=== PATIENT | female | born 1980 | race Caucasian/White ===

== ENCOUNTER 2022-10-14 09:25 | Emergency (ER) | payer MEDICAID ==
[~2022-10-14] VITALS: Ht 154.9 cm; Wt 82.6 kg
[2022-10-14 09:35] VITALS: BP 131/79
--- NOTE | 2022-10-14 09:37 | NUR ---
BIBself for rash x 3 days. Denied any intake of new meds, new food or change of detergent. BP 113/73mmHg, HR 89/min. SPO2 100% RA. Noted generalized rash and they are itchy.
[2022-10-14] MEDS ORDERED: DIPH50CA4 PO (09:41)
[2022-10-14] MEDS ORDERED: PRED50TA PO (09:41)
[2022-10-14] MEDS ORDERED: diphenhydrAMINE HCL 50 MG CAPSULE ONE (09:43)
[2022-10-14] MEDS ORDERED: predniSONE 20 MG TABLET ONE (09:45)
--- NOTE | 2022-10-14 09:56 | NUR ---
Medications are adminstered to patient and reminded her not to drive for long hours after taking benadryl. She showed understanding. Patient's chief complaint has been catered to and for discharge. Patient left at 09:55 by herself.
[2022-10-14] MEDS ORDERED: predniSONE 50 MG TABLET PO ONE (10:00)
[2022-10-14] MEDS ORDERED: diphenhydrAMINE HCL 25 MG CAPSULE PO ONE (10:00)
== END 2022-10-14 09:55 | disposition home or self-care (01) ==
LOC: ER 09:29
DX: L30.9 Dermatitis, unspecified (principal); K74.60 Unspecified cirrhosis of liver; E11.9 Type 2 diabetes mellitus without complications; Z79.899 Other long term (current) drug therapy; Z88.0 Allergy status to penicillin
CPT/HCPCS: 99283; Q0163; J7512

== ENCOUNTER 2023-08-02 20:05 | Emergency (ER) | payer MEDICAID ==
[~2023-08-02] VITALS: Ht 154.9 cm; Wt 84.4 kg
[~2023-08-02 20:05] MED LIST: DIPH50CA4 PO; PRED50TA PO
[2023-08-02] MEDS ORDERED: FAMOTIDINE/PF INJ 20 MG/2 ML VIAL IV ONE ×2 (22:23→22:30)
[2023-08-02] MEDS ORDERED: ONDANSETRON HCL/PF 4 MG/2 ML VIAL ONE (22:23)
[2023-08-02] MEDS ORDERED: KETOROLAC TROMETHAMINE 15 MG/ML VIAL ONE (22:29)
[2023-08-02] MEDS ORDERED: IV NS 0.9% 1,000 ML BAG IV ONE (22:30)
[2023-08-02] MEDS ORDERED: KETOROLAC TROMETHAMINE 15 MG/ML VIAL IV ONE (22:30)
[2023-08-02] MEDS ORDERED: ONDANSETRON HCL/PF 4 MG/2 ML VIAL IVP ONE (22:30)
[2023-08-02 22:50] LABS: BASOPHILS % (AUTO) 0.3 % (0.0-2.0); EOSINOPHILS # (AUTO) 0.2 K/uL (0.0-0.7); EOSINOPHILS % (AUTO) 2.8 % (0.0-6.0); HEMATOCRIT 35 % (33-45); HEMOGLOBIN 11.3 g/dL (11.5-14.8); LYMPHOCYTES # (AUTO) 1.7 K/uL (0.8-4.8); LYMPHOCYTES % (AUTO) 30.2 % (20.0-44.0); MEAN CORPUSCULAR HEMOGLOBIN 26 PG (26.0-33.0); MEAN CORPUSCULAR HGB CONC 32 g/dl (31.0-36.0); MEAN CORPUSCULAR VOLUME 80 fL (82-100); MONOCYTES # (AUTO) 0.4 K/uL (0.1-1.30); MONOCYTES % (AUTO) 6.4 % (2.0-12.0); NEUTROPHILS # (AUTO) 3.4 K/uL (1.8-8.9); NEUTROPHILS % (AUTO) 60.3 % (43.0-81.0); PLATELET COUNT (AUTO) 143 K/uL (150-450); RED BLOOD CELL COUNT(AUTO) 4.35 MIL/uL (4.0-5.2); RED CELL DISTRIBUTION WIDTH 14.6 % (11.5-15.0); WHITE BLOOD COUNT (AUTO) 5.6 K/uL (4.3-11.0)
[2023-08-02 22:58] LABS: CALCIUM, SERUM 8.9 mg/dL (8.5-10.1); CREATININE 0.7 mg/dL (0.6-1.3); POTASSIUM 3.5 mmol/L (3.5-5.1)
[2023-08-02 23:00] LABS: PARTIAL THROMBOPLASTIN TIME 28.1 SEC (24.3-34.3); PROTHROMBIN TIME 10.6 SECS (9.2-11.1)
[2023-08-02 23:03] LABS: ALBUMIN 3.4 g/dL (3.4-5.0); BILIRUBIN,DIRECT 0.1 mg/dL (0.0-0.2); BILIRUBIN,TOTAL 0.4 mg/dL (0.2-1.0); TOTAL PROTEIN, SERUM 8.4 g/dL (6.4-8.2)
[2023-08-02 23:13] LABS: APPEARANCE,URINE CLEAR (CLEAR); BILIRUBIN,URINE NEGATIVE (NEGATIVE); BLOOD, URINE 3+ Ery/uL (NEGATIVE); COLOR,URINE YELLOW (YELLOW); KETONES,URINE TRACE mg/dL (NEGATIVE); LEUKOCYTE ESTERASE ,URINE NEGATIVE (NEGATIVE); NITRITE, URINE NEGATIVE (NEGATIVE); PROTEIN,URINE NEGATIVE (NEGATIVE); UGLUCOSE 2+ mg/dL (NEGATIVE); UROBILINOGEN,URINE >=8.0 EU/dL (0.2)
[2023-08-02 23:16] LABS: ADD URINE CULTURE NO; BACTERIA,URINE None seen /HPF (None Seen); RBC,URINE 51-80 /HPF (0-2); SQUAMOUS EPITHELIAL CELL,UR Few /HPF (None Seen)
[2023-08-03] MEDS ORDERED: IOHEXOL-300 100 ML VIAL IV ONE (00:11)
[2023-08-03] MEDS ORDERED: CT SWABBABLE VALVE TRANS SET 1 EA INFUS.SET MC ONE (00:11)
[2023-08-03] MEDS ORDERED: MORPHINE SULFATE INJ 4 MG/ML DISP.SYRIN ONE (02:07)
[2023-08-03] MEDS ORDERED: MORPHINE SULFATE INJ 2 MG/ML DISP.SYRIN IV ONE (02:30)
[2023-08-03] MEDS ORDERED: ONDA4TAB5 PO (05:02)
[2023-08-03] MEDS ORDERED: IBUP-1953 PO (05:02)
[2023-08-03 05:10] VITALS: BP 114/56; TEMP 98; O2SAT 100
== END 2023-08-03 05:11 | disposition home or self-care (01) ==
LOC: ER 20:05
DX: K74.60 Unspecified cirrhosis of liver (principal); R10.11 Right upper quadrant pain; E11.9 Type 2 diabetes mellitus without complications; Z88.0 Allergy status to penicillin; Z79.899 Other long term (current) drug therapy
CPT/HCPCS: 99285; 74177; 96374; 76705; 96375 ×2; 96361; 85025; 80048; 83690; 80076; 81001; 36415; 85730; J3490; J2405; J7030; A4223; J1885; J2270; Q9967

== ENCOUNTER 2023-08-23 15:27 | Emergency (ER) | payer MEDICAID ==
[~2023-08-23] VITALS: Ht 157.5 cm; Wt 84.4 kg
[~2023-08-23 15:27] MED LIST changes: +IBUP-1953 PO; +ONDA4TAB5 PO
[2023-08-23] MEDS ORDERED: ACETAMINOPHEN ES 500 MG TABLET PO ONE (17:30)
[2023-08-23] MEDS ORDERED: ACETAMINOPHEN ES 500 MG TABLET ONE ×2 (19:18→19:20)
[2023-08-23] MEDS ORDERED: ACET-2605 PO (20:11)
[2023-08-23] MEDS ORDERED: IBUP-1955 PO (20:11)
[2023-08-23] MEDS ORDERED: FLUT16SP16 BNOSTRILS (20:11)
[2023-08-23] MEDS ORDERED: GUAI120013 PO (20:11)
[2023-08-23 20:25] VITALS: BP 138/68; TEMP 98; O2SAT 100
== END 2023-08-23 20:25 | disposition home or self-care (01) ==
LOC: ER 15:30
DX: J02.9 Acute pharyngitis, unspecified (principal); E11.9 Type 2 diabetes mellitus without complications; Z79.899 Other long term (current) drug therapy; Z20.822 Contact with and (suspected) exposure to COVID-19; Z88.0 Allergy status to penicillin
CPT/HCPCS: 86403-TC